=== PATIENT | male | born 1995 ===

== ENCOUNTER 2023-10-16 09:37 | Emergency (ER) | payer OTHER, SELFPAY ==
[2023-10-16 09:39] VITALS: BP 131/58; PULSE 57; RESP 18; TEMP 36.6; O2SAT 94; BMI 33.4
--- NOTE | 2023-10-16 09:49 | ECG_ITS ---
Test Reason : syncope Blood Pressure : / mmHG Vent. Rate : 060 BPM Atrial Rate : 060 BPM P-R Int : 166 ms QRS Dur : 118 ms QT Int : 436 ms P-R-T Axes : 035 047 022 degrees QTc Int : 436 ms Normal sinus rhythm Incomplete right bundle branch block Borderline ECG No previous ECGs available Referred By: Annamarie Galvez Electronically Signed By:JEWELS CORNEJO
[2023-10-16] MEDS: Lidocaine HCl 1 % MPF 5 ML VIAL SUBCUT (09:54)
--- NOTE | 2023-10-16 09:55 | PC.NURSE ---
pt was ambulating from triage tech area where he was having his lac wrapped, as he ambulated from there to [facility] pt stated I feel dizzy , this nurse and the irrigation service technician assisted the patient to [facility], the patients gait became very unsteady as he reached [facility] and he had a syncopal episode falling and hitting head on stool, pt then immediately woke. this nurse called for the PA who came to evaluate the patient, he was assisted to the bed. pt a&ox3, vitals stable as the triage was done in C 5, pt stating he has no pain/discomfort, pt noted to be diaphoretic, denies etoh use but states he does vape. pt to have ekg performed, call allison within reach, will continue to monitor
--- NOTE | 2023-10-16 09:57 | ED_ITS ---
HPI - Wound/Laceration General Chief Complaint: Wound/Laceration Stated Complaint: hand lac Time Seen by Provider: 10/16/23 09:40 Source: patient Mode of arrival: ambulatory Limitations: no limitations History of Present Illness ED Provider: Dwaine Galvez PA-C HPI narrative: 28 yo male with no known medical problems presents to the ER for evaluation of a laceration to his right hand sustained accidentally on a kitchen knife this morning. He states he ?lost a lot of blood.? The knife punctured him in the palm at the base of his thumb. He is able to fully extend and flex his thumb and all of his other digits. He is able to oppose his thumb to all of his other digits. He is able to make a fist. He denies any numbness or tingling. No other injuries. Tdap is up-to-date. Onset (ago): minute(s) Extremity Location: right: hand Place: home Patient tetanus UTD: Yes Context: accidental Associated symptoms: none Treatments prior to arrival: bandage Related Data Allergies Allergy/AdvReac Type Severity Reaction Status Date / Time No Known Allergies Allergy Verified 10/16/23 09:41 Review of Systems 2 Review of Systems: Yes all other systems are reviewed and are negative PMFSH Social History Social History Advance Directives: No Advance Directives Information Provided: No Do you have a plan to hurt others: No Plan Physical Exam 2 Vital Signs: Vital Signs: Last Vital Signs Temp 97.5 F 10/16/23 11:20 Pulse 65 10/16/23 11:20 Resp 17 10/16/23 11:20 BP 126/80 10/16/23 11:20 Pulse Ox 100 10/16/23 11:20 O2 Del Method Room Air 10/16/23 11:20 BMI result Body Mass Index 33.4 Appearance: Alert. Oriented X3. No acute distress. HEENT: normal inspection CVS: Normal heart rate and rhythm. Pulses normal. Respiratory: No respiratory distress. Skin: Skin warm and dry. Normal skin color. Normal skin turgor. No rashes. Extremities: 2.5 cm linear laceration to the left thenar eminence without active bleeding, visible adipose tissue. FROM of the left hand thumb, and fingers Neuro: Oriented X 3. No motor deficit. No sensory deficit. Medications Administered Discontinued Medications Generic Name Dose Route Start Last Admin Trade Name Freq PRN Reason Stop Dose Admin Diphtheria/Tetanus/Acell Pertussis 0.5 ml 10/16/23 09:43 10/16/23 09:54 Diphth,Pertus(Acell),Tet Adult 0.5 Ml Syringe IM 10/16/23 09:44 Not Given .ONCE ONE Sodium Chloride 1,000 mls @ 999 mls/hr 10/16/23 10:00 10/16/23 10:32 Ns IVCONT 10/16/23 11:00 999 mls/hr .Q1H1M RAVIN Administration Lidocaine HCl 5 ml 10/16/23 09:43 10/16/23 09:54 Lidocaine Hcl 1 % Mpf 5 Ml Vial SUBCUT 10/16/23 09:44 5 ml ONCE ONE Administration Medical Decision Making Medical Decision Making [facility] Narrative: 28-year-old male presents to the ER for evaluation of a laceration to his left hand sustained on a kitchen knife accidentally this morning. Wound will require suture repair. On the way from triage to the treatment room patient had a syncopal episode where he became lightheaded, blurry vision, and fell to the ground. He hit his face on the stool before hitting the ground. He lost consciousness for approximately 2 seconds and was able to stand up and get to the bed. He was pale and diaphoretic. He reported lightheadedness. IV was established and he was given IV fluids. His vital signs were stable. His lab workup was unremarkable. EKG was unremarkable. Denies history of syncope or vasovagal response in the past. Patient was monitored in the ER for 2 hours, he was tolerating p.o. and feeling much better. After suture per patient stable for discharge home with outpatient follow-up. Differential Diagnosis Differential Diagnoses: The differential diagnosis associated with the presentation includes Deep laceration, superficial laceration, tendon laceration, open fracture Syncope likely due to vasovagal reaction, less likely orthostatic hypotension, cardiac arrhythmia Admission/Observation Consideration of admission/observation: Escalation of care including admission/observation considered Considered observation versus admission for syncope however likely vasovagal event Lab Data [facility] Lab Attestation statement: I reviewed the patient's lab results. No anemia 10/16/23 10:30 10/16/23 10:30 Labs: Lab Results 10/16/23 Range/Units 10:30 WBC 6.9 (4.8-10.8) X10*3/uL RBC 5.07 (4.60-5.80) X10*6/uL Hgb 15.9 (14.0-18.0) g/dl Hct 45.4 (42.0-52.0) % MCV 89.5 (80.0-98.0) fL MCH 31.4 (27.0-33.0) pg MCHC 35.0 (31.0-36.0) g/dl RDW 11.8 (11.0-16.0) % Plt Count 200 (160-400) X10*3/uL MPV 9.2 L (9.4-12.4) fL Immature Gran % (Auto) 0.3 (0.0-0.4) % Neut % (Auto) 58.9 (45-73) % Lymph % (Auto) 31.0 (20-40) % Bladen % (Auto) 6.5 (2-11) % Eos % (Auto) 2.6 (0-4) % Baso % (Auto) 0.7 (0-2) % Lymph # (Auto) 2.1 (1.2-4.9) X10*3/uL Bladen # (Auto) 0.5 (0.1-1.2) X10*3/uL Eos # (Auto) 0.2 (0.0-0.4) X10*3/uL Baso # (Auto) 0.1 (0.0-0.2) X10*3/uL Abs Immat Gran (auto) 0.02 (0.00-0.03) X10*3/uL Absolute Neuts (auto) 4.1 (2.0-8.3) x10*3/uL Absolute Nucleated RBC 0.000 (0.0-0.012) X10*3/uL Nucleated RBC % (auto) 0.0 (0.0-0.2) /100WBC Sodium 141 (135-145) mmol/L Potassium 3.8 (3.3-5.1) mmol/L Chloride 108 (96-108) mmol/L Carbon Dioxide 26 (22-29) mmol/L Anion Gap 11 L (12-20) BUN 13 (9-16) mg/dL Creatinine 1.02 (0.5-1.4) mg/dL Estim Creat Clear Calc 152.5 Estimated GFR > 60 Random Glucose 102 (60-115) mg/dL Calcium 9.8 (8.4-10.2) mg/dL Magnesium 2.1 (1.6-2.6) mg/dL Total Bilirubin 0.7 (0.0-1.0) mg/dL Direct Bilirubin 0.2 (0.0-0.5) mg/dL AST 52 H (5-37) U/L ALT 62 H (0-40) U/L Alkaline Phosphatase 67 (39-117) U/L Total Protein 7.0 (6.5-8.0) g/dL Albumin 4.2 (3.5-5.0) g/dL Independent Interpretation I performed an independent interpretation of an: EKG Interpretation: EKG with normal sinus rhythm, incomplete right bundle-branch block, ventricular rate 60 beats per minute, normal pr interval. Independent Historian Clinical information obtained from an independent historian. History obtained from or confirmed by: Spouse Tests considered The following testing was considered but not selected: X-ray of the hand was considered however wounds is superficial and does not involve the deep structures. Prescription Management I considered prescription management with: Pain Medication and Antibiotic Procedures Laceration Laceration 1: Site: hand Side (If applicable): right Size (cm): 2.5 Description: linear Depth: involves muscle layer Local Anesthetic: lidocaine 1% Amount of anesthesia used (mL): 5 Pre-repair: wound explored, irrigated extensively and deep structures intact Skin layer closed with: nylon Size (cm): 4-0 Number of sutures: 6 Technique: simple, interrupted Discharge Plan Discharge Clinical Impression: Laceration, Syncope and collapse Patient Disposition: Home, Self-Care Instructions: Laceration (DC), Syncope (DC) Additional Instructions: 6 stitches were used to close your wound today You will need your stitches out in 7-10 days. See you doctor for this or come back to the ER and we will remove them. Do not get wet for 24 hours, after that you can briefly wash with soap and water then pat dry. Keep wound clean and covered. Allow open to air for a few hours per day. Do not submerge in water, no swimming. If you develop signs of infection including increased pain, swelling, redness or drainage of pus come back to the ER for further evaluation. Interventions: ED Discharge Assessment Last Done: 10/16/23 11:20 Discharge Date/Time: 10/16/23 11:21 Print Language: Swiss
[2023-10-16] MEDS: 0.9 % Sodium Chloride 1,000 ML 999 ML IVCONT (10:32)
--- NOTE | 2023-10-16 10:34 | PC.NURSE ---
iv inserted, labs drawn, pt medicated with ivf per order
[2023-10-16 10:35] LABS: MANUAL DIFF FLAG NO
--- NOTE | 2023-10-16 10:37 | PC.NURSE ---
provider at bedside to numb and suture wound
[2023-10-16 10:41] LABS: Basophils Absolute Auto 0.1 X10*3/uL (0.0-0.2); Basophils Percent Auto 0.7 % (0-2); Eosinophils Absolute Auto 0.2 X10*3/uL (0.0-0.4); Eosinophils Percent Auto 2.6 % (0-4); Hematocrit 45.4 % (42.0-52.0); Hemoglobin 15.9 g/dl (14.0-18.0); Imm Gran Abs Auto 0.02 X10*3/uL (0.00-0.03); Imm Gran Pct Auto 0.3 % (0.0-0.4); Lymphocytes Absolute Auto 2.1 X10*3/uL (1.2-4.9); Mean Corpuscular Hemoglobin 31.4 pg (27.0-33.0); Mean Corpuscular Volume 89.5 fL (80.0-98.0); Mean Platelet Volume 9.2 fL (9.4-12.4); Monocytes Absolute Auto 0.5 X10*3/uL (0.1-1.2); Monocytes Percent Auto 6.5 % (2-11); Neutrophils Absolute Auto 4.1 x10*3/uL (2.0-8.3); Neutrophils Percent Auto 58.9 % (45-73); Platelet Count 200 X10*3/uL (160-400); Red Blood Count 5.07 X10*6/uL (4.60-5.80); Red Cell Distribution Width 11.8 % (11.0-16.0); White Blood Count 6.9 X10*3/uL (4.8-10.8)
[2023-10-16 10:51] LABS: Alanine Aminotransferase 62 U/L (0-40); Albumin Level 4.2 g/dL (3.5-5.0); Alkaline Phosphatase 67 U/L (39-117); Anion Gap 11 (12-20); Aspartate Amino Transferase 52 U/L (5-37); Bilirubin Direct 0.2 mg/dL (0.0-0.5); Bilirubin Total 0.7 mg/dL (0.0-1.0); Blood Urea Nitrogen 13 mg/dL (9-16); Calcium 9.8 mg/dL (8.4-10.2); Carbon Dioxide 26 mmol/L (22-29); Chloride 108 mmol/L (96-108); Creatinine Clr Calc Pharmacy 152.5; Estimated Glomerular Filt Rate > 60; Glucose Random 102 mg/dL (60-115); Magnesium 2.1 mg/dL (1.6-2.6); Potassium 3.8 mmol/L (3.3-5.1); Sodium 141 mmol/L (135-145)
[2023-10-16 11:17] VITALS: BP 126/80; PULSE 65; RESP 17; TEMP 36.4; O2SAT 100
[2023-10-16 11:20] VITALS: BP 126/80; PULSE 65; RESP 17; TEMP 36.4; O2SAT 100
== END 2023-10-16 11:21 | disposition home or self-care (01) ==
PROVIDERS: Physician Assistant; Emergency Provider Emergency Medicine
DX: S61.411A Laceration without foreign body of right hand, initial encounter (principal); W26.0XXA Contact with knife, initial encounter; R55 Syncope and collapse; Y93.9 Activity, unspecified; Y92.000 Kitchen of unspecified non-institutional (private) residence as the place of occurrence of the external cause; Y99.9 Unspecified external cause status
CPT/HCPCS: 12002; 36415; 80048; 80076; 83735; 85025; 93005; 99284